=== PATIENT | male | born 2000 | race Caucasian/White ===

== ENCOUNTER 2022-04-22 17:42 | Outpatient (CLI) | payer BC, SELFPAY ==
[2022-04-22 20:38] LABS: Albumin* 4.6 g/dL (3.3-5.0); Chloride* 101 mmol/L (96-114); Sodium* 138 mmol/L (135-149)
[2022-04-22 20:41] LABS: Alanine Aminotransferase* 22 U/L (4-50); Alkaline Phosphatase* 92 U/L (40-150); Aspartate Amino Transferase* 29 U/L (12-35); Bilirubin Total* 0.4 mg/dL (0.1-1.5); Blood Urea Nitrogen* 14 mg/dL (5-24); Carbon Dioxide* 28 mmol/L (20-32); Creatinine* 0.9 mg/dL (0.5-1.5); Estimated Glomerular Filt Rate 125 ml/min; Glucose* 82 mg/dL (60-115); Total Protein* 6.7 g/dL (6.0-8.3)
[2022-04-22 20:42] LABS: Calcium* 9.2 mg/dL (8.4-10.6)
[2022-04-22 20:57] LABS: Free T4 Free Thyroxine* 0.92 ng/dL (0.70-1.85)
[2022-04-22 21:11] LABS: Thyroid Stimulating Hormone* 0.704 uIU/mL (0.270-4.20)
== END 2022-04-22 17:43 | disposition home or self-care (01) ==
PROVIDERS: PCP Family Medicine; Visit Provider Family Medicine
DX: Z00.00 Encounter for general adult medical examination without abnormal findings (principal); R62.7 Adult failure to thrive
CPT/HCPCS: 80053; 84439; 84443

== ENCOUNTER 2022-11-29 14:24 | Emergency (ER) | payer BC, SELFPAY ==
[2022-11-29 14:34] VITALS: BP 132/75; PULSE 111; RESP 20; TEMP 36.5; O2SAT 100; BMI 17.6
[2022-11-29 14:54] VITALS: O2SAT 99
--- NOTE | 2022-11-29 14:54 | CRLHL7_ITS ---
For Patients: As a result of the Century Cures Act, medical imaging exams and procedure reports are released immediately into your electronic medical record. You may view this report before your referring provider. If you have questions, please contact your health care provider. INDICATION: Chest pain TECHNIQUE: Single view chest. FINDINGS: The lungs are clear. The heart, mediastinum and pulmonary vessels are of normal size. There is no evidence of pleural disease. IMPRESSION: Negative chest. Dictated by Autumn Robbins MD @ 11/29/2022 3:40:04 PM (Electronically Signed)
[2022-11-29 15:00] VITALS: BP 105/70; PULSE 90; RESP 16; O2SAT 100
[2022-11-29 15:26] LABS: Basophils Absolute Auto 0.03 K/uL (0.00-0.30); Basophils Percent Auto 0.3 % (0.0-3.0); Eosinophils Absolute Auto 0.14 K/uL (0.00-0.50); Eosinophils Percent Auto 1.3 % (0.0-7.0); Hematocrit 44.8 % (37.0-53.0); Hemoglobin* 15.8 gm/dL (13.5-17.5); Immature Granulocytes Abs Auto 0.08 K/uL (0.00-0.30); Immature Granulocytes Pct Auto 0.7 %; Lymphocytes Absolute Auto 2.25 K/uL (0.90-2.90); Lymphocytes Percent Auto 20.8 % (20-44); Mean Corpuscular HGB Conc 35 gm/dL (32-36); Mean Corpuscular Hemoglobin 31 pg (26-34); Mean Corpuscular Volume 89 fL (80-100); Monocytes Percent Auto 6.9 % (0.0-11.0); Neutrophils Absolute Auto 7.55 K/uL (1.7-7.0); Platelet Count* 227 K/uL (140-440); RDW Coefficient of Variation % 11.8 % (11.5-15.5); Red Blood Count 5.05 m/uL (4.30-5.90)
[2022-11-29 15:27] LABS: Albumin* 4.6 g/dL (3.3-5.0); Chloride* 104 mmol/L (96-114); Sodium* 140 mmol/L (135-149)
[2022-11-29 15:28] LABS: Potassium* 3.5 mmol/L (3.6-5.1)
[2022-11-29 15:30] VITALS: BP 94/65; PULSE 85; RESP 16; O2SAT 98
[2022-11-29 15:30] LABS: Alkaline Phosphatase* 79 U/L (40-150); Aspartate Amino Transferase* 23 U/L (12-35); Bilirubin Direct* 0.1 mg/dL (0.0-0.5); Bilirubin Total* 1.2 mg/dL (0.1-1.5); Carbon Dioxide* 30 mmol/L (20-32); Creatinine* 0.9 mg/dL (0.5-1.5); Est. Creatinine Clearance* 120.78; Estimated Glomerular Filt Rate 125 ml/min; Total Protein* 7.5 g/dL (6.0-8.3)
[2022-11-29 15:31] LABS: Alanine Aminotransferase* 17 U/L (4-50); Blood Urea Nitrogen* 13 mg/dL (5-24); Calcium* 9.9 mg/dL (8.4-10.6); Glucose* 84 mg/dL (60-115); Lipase* 56 U/L (23-300); Slide Review Reflex No
[2022-11-29 15:34] LABS: C Reactive Protein* < 0.5 mg/dL (0.5-1.0)
[2022-11-29 15:38] LABS: D Dimer Quantitative* < 0.27 ug/ml (0.00-0.50)
[2022-11-29] MEDS: KETOROLAC 15 MG/ML inj IVP (15:51)
[2022-11-29 16:00] VITALS: BP 88/62; PULSE 72; O2SAT 98
[2022-11-29 16:13] VITALS: BP 103/69; PULSE 88; O2SAT 98
--- NOTE | 2022-11-29 17:20 | ED.GENADULT ---
HPI - General Adult General Date Seen: 11/29/22 Chief complaint: Chest Pain Stated complaint: Chest pain Time Seen by Provider: 11/29/22 14:43 Source: patient Mode of arrival: ambulatory Limitations: no limitations History of Present Illness HPI narrative: Patient is a 22-year-old male who presents for evaluation of central chest pain which has been present since about 9:00 a.m. this morning. He says that it has not gone away since it started. He was not doing anything special when it started. He describes it as sharp and nonradiating, although he does have some pain when he swallows as well. He says when he stands up tall and looks up toward the ceiling the pain is worse. If he sits and hunches forward it feels better. He tried to take a nap and slept for a while but then the pain woke him up. Then he decided to come in. If he takes a very deep breath he says it hurts but does not otherwise hurt to breathe. He does not feel short of breath. He has not had a fever or cough, no lower extremity swelling or pain. He has a history of a pneumothorax when he was younger, so that was in the back of his mind, but this really does not feel like that felt. He does not have a history of heartburn or reflux. He describes the pain as being moderately severe in intensity. He chews tobacco, he vapes nicotine. Does not describe significant alcohol use. Denies other drug use. Related Data Home Medications Medication Instructions Recorded Confirmed cyclobenzaprine 10 mg tablet 10 mg PO BID PRN 10/11/22 11/29/22 Previous Rx's Medication Instructions Recorded dextroamphetamine-amphetamine 15 15 mg PO QDAY #30 tabs 11/18/22 mg tablet (Adderall) dextroamphetamine-amphetamine 15 15 mg PO QDAY #30 tabs 11/18/22 mg tablet (Adderall) dextroamphetamine-amphetamine 15 15 mg PO QDAY #30 tabs 11/18/22 mg tablet (Adderall) methylphenidate HCl 36 mg 36 mg PO QAM #30 tabs 11/24/22 tablet,extended release 24 hr (Concerta) omeprazole 40 mg capsule,delayed 40 mg PO DAILY 14 days #14 caps 11/29/22 release sucralfate 100 mg/mL oral 10 ml PO TID PRN #200 mL 11/29/22 suspension Allergies Allergy/AdvReac Type Severity Reaction Status Date / Time No Known Drug Allergies Allergy Verified 11/15/22 09:33 Review of Systems Status of ROS: Reports: 10 or more systems reviewed and unremarkable except as noted in History and below [facility] Medical History ADHD, predominantly inattentive type Pneumothorax on left Poor weight gain in adult Seasonal allergies Surgical History (Updated 04/22/22 @ 21:06 by Wesly Herrmann MD) History of chest tube placement Family History (Updated 04/22/22 @ 21:18 by Wesly Herrmann MD) Mother Celiac sprue Brother Celiac sprue Social History (Updated 04/22/22 @ 21:06 by Wesly Herrmann MD) Narrative: Engaged, one son, former smoker, works construction, social EtOH Smoking Status: Former smoker Do you use any of these nicotine containing products: Vaping Products Second hand tobacco smoke exposure: No How often do you have a drink containing alcohol: 2-3 times a week How many standard drinks containing alcohol do you have on a typical day: 1 or 2 How often do you have six or more drinks on one occasion: Less than monthly AUDIT-C Alcohol total score: 4 Non-prescribed substance use: denies use Little interest or pleasure in doing things: not at all Feeling down, depressed, or hopeless: not at all Exam Narrative: Exam Narrative: Vital signs as noted above. In general, an alert, well-appearing patient. Very tall and thin. Comfortable, breathing easily here. Head: Normocephalic, atraumatic. Eyes: Pupils are equal reactive. Extraocular movements are full. Conjunctivae are normal. ENT: Mucous membranes are moist. Throat is normal. Neck: Supple without lymphadenopathy. Heart: Initially tachycardic and regular. No murmur or rub. Pectus excavatum. Lungs: Clear bilaterally. No increased work of breathing, crackles or wheezes. Abdomen: Soft and nontender. No organomegaly. Extremities: Well perfused. No edema. No calf tenderness. Pulses intact. Neurologic: Patient is alert and oriented to person and place. Speech is fluent. Face is symmetric. Moves all extremities equally. Affect: Normal. Skin: Warm and dry. Well perfused. Const: Vital Signs, click to edit/add: Vital Signs - 24 hr 11/29/22 14:34 11/29/22 14:54 11/29/22 15:00 Temperature 97.7 F Pulse Rate [Pulse Oximeter] 111 H 90 Respiratory Rate 20 16 Blood Pressure [Ri ght Upper Arm] 132/75 105/70 Pulse Oximetry 100 99 100 Oxygen Delivery Me thod Room Air 11/29/22 15:30 11/29/22 16:00 11/29/22 16:13 Temperature Pulse Rate [Pulse Oximeter] 85 72 88 Respiratory Rate 16 Blood Pressure [Ri ght Upper Arm] 94/65 88/62 L 103/69 Pulse Oximetry 98 98 98 Oxygen Delivery Me thod Documenting provider has reviewed patient's vital signs: yes Course Course Hospital Course: On arrival, patient had an EKG which by my review showed sinus rhythm, incomplete right bundle-branch block. Nonspecific ST changes, a slightly scooped inverted T-wave in V2 but without other ST or T-wave abnormalities. His point of care troponin was 0, 6 hours after onset of pain. A D-dimer was likewise negative. A portable chest x-ray shows normal mediastinum, no pneumothorax or infiltrate. Final radiology report was of a negative chest x-ray. CBC showed a normal white blood cell count, normal hemoglobin, metabolic panel was normal aside from a potassium of 3.5. LFTs were normal, CRP was less than 0.5 and lipase was normal. Following the negative troponin, I tried giving him some Toradol which provided some improvement in his pain. I did look with the bedside ultrasound and he had no evidence of pericardial effusion. At that time, he was noticing more pain with swallowing, so I elected to give him a GI cocktail. He feels significantly improved after that intervention. With his young age, my suspicion for this being cardiac is rather low, particularly given the negative troponin. I did do a repeat EKG, this shows ongoing sinus rhythm, and is essentially unremarkable. V2 does look slightly different but I would note that the sticker for V2 was replaced because I removed the initial 1 when I was doing his ultrasound. He is quite tall and thin, which raises the Specter of possible connective tissue disorders, but he has a normal D-dimer, normal chest x-ray, and is not hypertensive. He was mildly tachycardic on arrival but this has resolved. The pain with swallowing seems to have been a fairly prominent feature of his chest pain and is resolved with a GI cocktail, so I do wonder about something more along the lines of gastroesophageal reflux/esophageal spasm. There is no evidence of free air or pneumomediastinum on his chest x-ray, as is his CRP. He does not describe a history of recent vomiting. For now, I have recommended that we try him on some Prilosec and have him follow up next week with Dr. Herrmann. If at any time he has acute worsening, develops more severe pain, has hematemesis or black or bloody stools, fever etcetera he should return for re-evaluation. Otherwise, follow up as an outpatient. Vital Signs Vital signs: Initial Vital Signs Temperature 97.7 F 11/29/22 14:34 Temperature Source Temporal Artery Scan 11/29/22 14:34 Pulse Rate 111 H 11/29/22 14:34 Respiratory Rate 20 11/29/22 14:34 Blood Pressure 132/75 11/29/22 14:34 Blood Pressure Mean 94 11/29/22 14:34 Blood Pressure Position Sitting 11/29/22 14:34 Pulse Oximetry 100 11/29/22 14:34 Oxygen Delivery Method 11/29/22 14:34 Vital Signs Temperature 97.7 F 11/29/22 14:34 Pulse Rate 111 H 11/29/22 14:34 Respiratory Rate 20 11/29/22 14:34 Blood Pressure 132/75 11/29/22 14:34 Pulse Oximetry 100 11/29/22 14:34 Oxygen Delivery Method 11/29/22 14:34 Temperature 97.7 F 11/29/22 14:34 Pulse Rate 88 11/29/22 16:13 Respiratory Rate 16 11/29/22 15:30 Blood Pressure 103/69 11/29/22 16:13 Pulse Oximetry 98 11/29/22 16:13 Oxygen Delivery Method 11/29/22 14:34 Medical Decision Making Lab Data Labs: Lab Results 11/29/22 11/29/22 11/29/22 Range/Units 15:04 15:04 15:04 WBC 10.80 (4.50-11.00) K/uL RBC 5.05 (4.30-5.90) m/uL Hgb 15.8 (13.5-17.5) gm/dL Hct 44.8 (37.0-53.0) % MCV 89 (80-100) fL MCH 31 (26-34) pg MCHC 35 (32-36) gm/dL RDW Coeff of Ailyn 11.8 (11.5-15.5) % Plt Count 227 (140-440) K/uL Neut % (Auto) 70.0 (42.0-72.0) % Lymph % (Auto) 20.8 (20-44) % Boone % (Auto) 6.9 (0.0-11.0) % Eos % (Auto) 1.3 (0.0-7.0) % Baso % (Auto) 0.3 (0.0-3.0) % Neut # (Auto) 7.55 H (1.7-7.0) K/uL Lymph # (Auto) 2.25 (0.90-2.90) K/uL Boone # (Auto) 0.70 (0.00-0.90) K/UL Eos # (Auto) 0.14 (0.00-0.50) K/uL Baso # (Auto) 0.03 (0.00-0.30) K/uL D-Dimer Quant (PE/DVT) < 0.27 (0.00-0.50) ug/ml Sodium 140 (135-149) mmol/L Potassium 3.5 L (3.6-5.1) mmol/L Chloride 104 (96-114) mmol/L Carbon Dioxide 30 (20-32) mmol/L BUN 13 (5-24) mg/dL Creatinine 0.9 (0.5-1.5) mg/dL Estimated Creat Clear 120.78 Estimated GFR 125 ml/min Glucose 84 (60-115) mg/dL Calcium 9.9 (8.4-10.6) mg/dL Total Bilirubin 1.2 (0.1-1.5) mg/dL Direct Bilirubin 0.1 (0.0-0.5) mg/dL AST 23 (12-35) U/L ALT 17 (4-50) U/L Alkaline Phosphatase 79 (40-150) U/L C-Reactive Protein < 0.5 L (0.5-1.0) mg/dL Total Protein 7.5 (6.0-8.3) g/dL Albumin 4.6 (3.3-5.0) g/dL Lipase 56 (23-300) U/L POC Troponin I (0.01-0.04) ng/ml 11/29/22 Range/Units 15:04 WBC (4.50-11.00) K/uL RBC (4.30-5.90) m/uL Hgb (13.5-17.5) gm/dL Hct (37.0-53.0) % MCV (80-100) fL MCH (26-34) pg MCHC (32-36) gm/dL RDW Coeff of Ailyn (11.5-15.5) % Plt Count (140-440) K/uL Neut % (Auto) (42.0-72.0) % Lymph % (Auto) (20-44) % Boone % (Auto) (0.0-11.0) % Eos % (Auto) (0.0-7.0) % Baso % (Auto) (0.0-3.0) % Neut # (Auto) (1.7-7.0) K/uL Lymph # (Auto) (0.90-2.90) K/uL Boone # (Auto) (0.00-0.90) K/UL Eos # (Auto) (0.00-0.50) K/uL Baso # (Auto) (0.00-0.30) K/uL D-Dimer Quant (PE/DVT) (0.00-0.50) ug/ml Sodium (135-149) mmol/L Potassium (3.6-5.1) mmol/L Chloride (96-114) mmol/L Carbon Dioxide (20-32) mmol/L BUN (5-24) mg/dL Creatinine (0.5-1.5) mg/dL Estimated Creat Clear Estimated GFR ml/min Glucose (60-115) mg/dL Calcium (8.4-10.6) mg/dL Total Bilirubin (0.1-1.5) mg/dL Direct Bilirubin (0.0-0.5) mg/dL AST (12-35) U/L ALT (4-50) U/L Alkaline Phosphatase (40-150) U/L C-Reactive Protein (0.5-1.0) mg/dL Total Protein (6.0-8.3) g/dL Albumin (3.3-5.0) g/dL Lipase (23-300) U/L POC Troponin I 0.00 L (0.01-0.04) ng/ml Discharge Plan Discharge Clinical Impression: Chest pain Patient Disposition: Home, Self-Care Condition: Improved Instructions: GERD (Gastroesophageal Reflux Disease) (DC) Additional Instructions: Prilosec as prescribed. Carafate as needed. Primary care follow-up next week for re-evaluation. If you have severe uncontrolled pain, fever, bloody emesis, black or bloody stools, or other significant worsening, return for re-evaluation. Prescriptions: New omeprazole 40 mg capsule,delayed release(DR/EC) 40 mg PO DAILY 14 Days Qty: 14 0RF sucralfate 100 mg/mL suspension 10 ml PO TID PRNQty: 200 3RF No Action cyclobenzaprine 10 mg tablet 10 mg PO BID PRN Label Comments: TAKE 1 TABLET 2 TIMES DAILY IF NEEDED FOR MUSCLE SPASM. DON'T DRIVE FOR 8 HOURS AFTER TAKING THIS. dextroamphetamine-amphetamine [Adderall] 15 mg tablet 15 mg PO QDAY Qty: 30 0RF dextroamphetamine-amphetamine [Adderall] 15 mg tablet 15 mg PO QDAY Qty: 30 0RF dextroamphetamine-amphetamine [Adderall] 15 mg tablet 15 mg PO QDAY Qty: 30 0RF methylphenidate HCl [Concerta] 36 mg tablet extended release 24hr 36 mg PO QAM Qty: 30 0RF Follow Up/Referrals: Wesly Herrmann MD [Primary Care Provider] - Stand Alone Forms: [facility] Info Instructions
[2022-11-29] MEDS: GI COCKTAIL (VISC LIDO/ANTACID) 30 ML PO (17:36)
--- NOTE | 2022-11-29 17:45 | ED.NURSE ---
Pt states pain improved after GI cocktail updated.
== END 2022-11-29 18:19 | disposition home or self-care (01) ==
PROVIDERS: Emergency Provider Emergency Medicine; PCP Family Medicine
DX: R07.9 Chest pain, unspecified (principal)
CPT/HCPCS: 36415; 71045; 80048; 80076; 83690; 84484; 85025; 85379; 86140; 93005; 94761; 96374; 99284; 99285; A9270; J1885

== ENCOUNTER 2023-07-14 15:53 | Outpatient (CLI) | payer BC, SELFPAY ==
--- NOTE | 2023-07-14 16:00 | CRLHL7_ITS ---
For Patients: As a result of the Century Cures Act, medical imaging exams and procedure reports are released immediately into your electronic medical record. You may view this report before your referring provider. If you have questions, please contact your health care provider. Indication: Chronic sinusitis. Technique: CT of the sinuses performed without IV contrast Comparison: None relevant available Findings: Frontal sinuses: Clear. Ethmoid sinuses: Mild mucosal thickening Maxillary sinuses: Small right mucous retention cyst/polyp. Otherwise clear. Sphenoid sinuses: Clear. The right ostiomeatal unit appears occluded, partially opacified on the left. The sphenoethmoidal and frontoethmoidal recesses appear patent. Nasal Cavity: Mild rightward nasal septal deviation. No aggressive osseous erosion, mucoperiosteal reaction or air-fluid levels identified. No effacement of the fat planes. Intracranial structures appear grossly intact as visualized. Impression: 1. Mild ethmoid paranasal sinus disease. 2. No evidence of acute sinusitis. 3. Occluded right ostiomeatal unit. Please note that all CT scans at this facility use dose modulation, iterative reconstruction, and/or weight-based dosing when appropriate to reduce radiation dose to as low as reasonably achievable. Dictated by Herson Hill MD @ 07/14/2023 4:44:40 PM (Electronically Signed)
== END 2023-07-14 15:54 | disposition home or self-care (01) ==
PROVIDERS: PCP Family Medicine; Visit Provider Otolaryngology
DX: J32.9 Chronic sinusitis, unspecified (principal)
CPT/HCPCS: 70486

== ENCOUNTER 2023-08-29 16:57 | Outpatient (CLI) | payer BC, SELFPAY | END 2023-08-29 16:58 | disposition home or self-care (01) | LOC: NFLDREF 16:59 | PROVIDERS: PCP Family Medicine; Visit Provider Family Medicine | DX: Z01.818 Encounter for other preprocedural examination (principal) | CPT/HCPCS: 80048 ==

== ENCOUNTER 2023-09-12 09:28 | Day surgery (SDC) | payer BC, SELFPAY ==
[2023-09-12] VITALS (12 sets, daily range): BP systolic 102–130; BP diastolic 66–84; PULSE 65–77; RESP 12–18; TEMP 36.4–36.8; O2SAT 88–100; BMI 17.6
[2023-09-12] MEDS: ETHYL CHLORIDE 1 APPLICATION 1 APPLIC TOPICAL (10:18)
[2023-09-12] MEDS: SODIUM CHLORIDE 0.9 % (FLUSH) 10 ML SYRINGE IVF (10:19)
[2023-09-12] MEDS: LACTATED RINGERS 1000 ML 1,000 ML 100 ML IV (10:19)
[2023-09-12] MEDS: OXYMETAZOLINE 0.05% NASAL SPRAY 2 SPRAY NOSTRIL-B (11:05)
[2023-09-12] MEDS: BUPIVACAINE 0.5 %/EPI 1:200K 30 ML INJECTION (12:28)
[2023-09-12] MEDS: MUPIROCIN 1 GM PACKET 1 APPLIC TOPICAL (12:28)
[2023-09-12] MEDS: COCAINE HCL 4 % 4 ML SOLUTION NOSTRIL-B (12:28)
[2023-09-12] MEDS: AYR SALINE NASAL GEL 1 APPLIC NOSTRIL-B (12:30)
--- NOTE | 2023-09-12 12:30 | W.ANESCHARGE ---
Anesthesia Charges Start Date/Time Anesthesia Start Date: 09/12/23 Anesthesia Start Time: 12:09 Stop Date/Time Anesthesia Stop Date: 09/12/23 Anesthesia Stop Time: 12:50
--- NOTE | 2023-09-12 12:52 | W.ANESCHARGE ---
Anesthesia Charges Start Date/Time Anesthesia Start Date: 09/12/23 Anesthesia Start Time: 12:09 Stop Date/Time Anesthesia Stop Date: 09/12/23 Anesthesia Stop Time: 12:50
[2023-09-12] MEDS: ACETAMINOPHEN 325 MG TABLET PO (13:52)
[2023-09-12] MEDS: OXYCODONE 5 MG TABLET PO (13:52)
--- NOTE | 2023-09-12 13:59 | W.PM.ENTPROC ---
Procedure Note Date of procedure: 09/12/23 Procedure: PREOP DIAGNOSIS NASAL OBSTRUCTION NASAL HEADACHE DEVIATED SEPTUM LEFT INFERIOR TURBINATE HYPERTROPHY Postoperative diagnosis same Procedure nasal septoplasty, submucous partial resection left inferior turbinate Under general endotracheal anesthesia patient was prepped draped usual fashion the nose injected and decongested. A right hemitransfixion incision was made left anterior posterior tunnels were created. A vertical incision was made through the cartilage and a right posterior tunnel created. The posterior deflected portions of septal bone resected a large piece was trimmed and returned to intraseptal space. The anterior septum was moved to midline. The hemitransfixion was closed with 2 4-0 chromic sutures. Left middle turbinate was enlarged was crushed with the [place] forceps. A stab incision was made in the anterior low a the left inferior turbinate a tunnel created with a Guthrie dissector. Conservative anterior submucous resection was performed in the Coblation was used for hemostasis and to cauterize intramurally along the inferior 10%. Silastic stents were secured with 3-0 nylon and Merocel packing was placed in each side the nose. The patient procedure well was taken recovery in satisfactory condition. Blood loss less than 25 mL. Surgeon: Scooter Martinez MD
== END 2023-09-12 14:17 | disposition home or self-care (01) ==
LOC: OR 09:29
PROVIDERS: PCP Family Medicine; Visit Provider Otolaryngology
PROC: (CPT 30520; principal; 2023-09-12 10:45)
DX: J34.2 Deviated nasal septum (principal); J34.3 Hypertrophy of nasal turbinates; R51.9 Headache, unspecified
CPT/HCPCS: 30520; 30140; 160; A9270; J0330; J1100; J2405; J2704; J3010; J3490; J7120

== ENCOUNTER 2024-12-22 19:13 | Emergency (ER) | payer BC, SELFPAY ==
--- OUTSIDE RECORDS SUMMARY | 2024-12-22 19:14 | XMS_ITS | Clinical Summary ---
Author Organization [employer] [facility] Address [facility] [place] [address] Care Team Providers Care Racing Mechanic Name Role Phone Kendell Anglin MD Primary Care Provider [phone]- [phone] Allergies Active Allergy Reactions Criticality Noted Date Comments House Dust Cough,Wheezing 04/29/2014 Medications cyclobenzaprine (FLEXERIL) 10 mg tabletIndication s:Trapezius muscle strain, left, initial encounter Take 1 Tablet (10 mg) by mouth 2 times daily if needed for Muscle Spasm. Don't drive for 8 hours after taking this. 30 Tablet 04/05/2022 Active Active Problems Problem Noted Date Diagnosed Date Exercise-induced asthma 07/19/2013 Seasonal allergies 06/28/2013 Unspecified hyperkinetic syndrome of childhood 0 05/05/2008 Overview (05/05/2008): In process of evaluating attentional concerns Immunizations Immunization Administration Dates Next Due AMB Influenza, IIV3 (Age >=3 years) Preserve Free (Flu Clinic Only) 07/18/2011 AMB Influenza, IIV3 (Age >=3 years)(Flu Clinic Only) 07/21/2009,07/27/2008 AMB Influenza, IIV4 PF (=>6 mos Flulaval,Fluzone Fluarix)(Flu Clinic Only) 07/02/2016,07/04/2014,06/23/2013 DTaP 04/10/2006, 3,2001,07/28,2001 HIB HbOC (HibTITER) 07/02/2003,2001,2000 Hepatitis A (Peds) 04/18/2010,04/21/2009 Hepatitis B (Peds) 07/02/2002,2001, 001 Human Papilloma Virus Vaccine 11/13/2012, 012,04/29/2012 Inactivated Polio Vaccine 04/10/2006,05/2002,2001,05/29 Influenza A (H1N1), Inactivated 08/11/2009 Influenza A (H1N1), Inactiva symone (Age >=3 Years) 09/19/2009 Influenza, IIV3 (Age >=3 years) 07/10/20 12,06/26/2010,09/14/2007,08/13 Influenza, IIV4 06/21/2020, 8,06/06/2017,06/19 MENINGOCOCCAL VACCINE 2 VIAL [id number] (MENVEO) 06/06/2017,07/10/2012 MMR 04/10/2006,03/30/2002 Pneumococcal conj 7-Valent (Prevnar 7) 0 10/14/2002,03/30/2002,2001,05/29 Tdap 04/29/2012 Varicella Vaccine 04/10/2006,03/30/2002 Social History Tobacco Use Types Packs/Day Years Used Date Smoking Tobacco: Never Smokeless Tobacco: Current Chew Tobacco Cessation:Ready to Q uit: No; Counseling Given: Yes Comments:mother quit in Alcohol Use Standard Drinks/Week Comments Yes 1 (1 standard drink = 0.6 oz pur e alcohol) PHQ-2 Answer Date Recorded PHQ-2 TOTAL SCORE 0 04/05/2022 Social Connections Answer Date Recorded Frequency of Communication with Friends and Fami ly Not on file 10/06/2021 Alcohol Use Answer Date Recorded How often do you have a drink containing alcohol ? 2 04/05/2022 How many drinks containing a lcohol do you have on a typical day when you are drinking? 0 04/05/2022 How often do you have five or more drinks on one occasion? 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 Gender Identity Not on file Sexual Orientation Not on file Obstetrics History Last Filed Vital Signs Vital Sign Reading Time Taken Comments Blood Pressure 107/66 04/05/2022 12:08 PM CDT Pulse 73 04/05/2022 12:08 PM CDT Temperature 36.4 C (97.5 F) 06/21/2020 2:56 PM CDT Respiratory Rate - - Oxygen Saturation 98% 04/05/2022 12:08 PM CDT Inhaled Oxygen Concentration - - Weight 64.6 kg (142 lb 8 oz) 04/05/2022 12:08 PM CDT Height 192.8 cm (6' 3.91) 04/05/2022 12:08 PM C DT Body Mass Index 17.39 04/05/2022 12:08 PM CDT Plan of Treatment Health Maintenance Due Date Last Done Comments HIV for age 15-65 2016 Hepatitis C screening for age 18-79 2019 Tetanus booster 04/29/2022 04/29/2012 BMI (ht and wt on same day) for age 18+ 04/05/2023 04/05/2022, 06/21/2020 Depression screening for age 12+ 04/05/2023 04/05/2022, 06/21/2020, 06/15/2018, Additional history exists COVID-19 vaccine series ( season) 2024 07/23/2021, 06/17/2021 Influenza Vaccine (#1) 2024 0, 06/15/2018, 06/06/2017, Additional history exists Pneumococcal series for age 6-49 Aged Out 10/14/2002, 03/30/2002, 2001, Additional history exists No longer eligible based on patient's age to complete this topic Tdap Completed 04/29/2012 HPV series for age 9-26 Completed 11/13/19 13, 07/10/2012, 04/29/2012 Care Teams Racing Mechanic Relationship Specialty Start Date End Date Kendell Anglin MD [address] [place] [address] [facility] - General 12/03/07
[2024-12-22 19:27] VITALS: RESP 18; O2SAT 99
[2024-12-22 19:28] VITALS: BP 135/80; PULSE 95; RESP 20; TEMP 36.8; O2SAT 99; BMI 17.6
[2024-12-22 19:45] VITALS: O2SAT 99
--- NOTE | 2024-12-22 20:06 | CRLHL7_ITS ---
For Patients: As a result of the Century Cures Act, medical imaging exams and procedure reports are released immediately into your electronic medical record. You may view this report before your referring provider. If you have questions, please contact your health care provider. Indication: Neck pain. Technique: Cervical spine 3 views. Comparison: None. Findings: The cervical vertebral bodies are normal in height and alignment. The intervertebral disc spaces are maintained. The posterior elements are unremarkable. No aggressive osseous lesion, acute fracture, or traumatic subluxation. The craniocervical junction is intact. The lung apices are clear. Impression: Unremarkable cervical spine. Dictated by Masood Hernandez MD @ 12/22/2024 9:10:34 PM (Electronically Signed)
--- OUTSIDE RECORDS SUMMARY | 2024-12-22 20:21 | XMS_ITS | Clinical Summary ---
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
--- NOTE | 2024-12-22 20:51 | ED_ITS ---
HPI - General Adult General Chief complaint: Unspecified Complaint, Adult Stated complaint: Upper spinal pressure Time Seen by Provider: 12/22/24 19:39 History of Present Illness HPI narrative: This 24-year-old male comes in reporting pain in his posterior neck. He states that he has been having neck and back problems for the past 6 months. He does not report any injury event or strenuous activity recently. He has been going to a chiropractor for his lower back and his neck and states that he has had manipulations of both at various times. He does not report any pain radiating down either arm. He seems to have normal range of motion of his neck. Related Data Previous Rx's ?Medication ?Instructions ?Recorded dextroamphetamine-amphetamine 20 20 mg PO BID #60 tabs 12/19/24 mg tablet (Adderall) methylprednisolone 4 mg tablets in See Rx Instructions PO .COMPLEX 12/22/24 a dose pack (Medrol (Homero)) #21 ea Allergies Allergy/AdvReac Type Severity Reaction Status Date / Time No Known Drug Allergies Allergy Verified 12/22/24 19:30 Review of Systems Status of ROS: Reports: 10 or more systems reviewed and unremarkable except as noted in History and below Narrative: Constitutional: No fevers, no weight gain or loss. Eyes: No discharge. No vision changes. HENT: No congestion, no sore throat, no ear pain. Cardiovascular: No chest pain, no palpitations. Respiratory: No shortness of breath, no wheezes, no cough. Gastrointestinal: No abdominal pain, no vomiting, no diarrhea. Genitourinary: No dysuria, no hematuria. Musculoskeletal: Normal range of motion. Skin: No rashes, no pruritis. Neurological: No dizziness, weakness, sensory change, speech change. Endo/Heme/Allergies: No bruising or bleeding. No polydipsia. Pysch: no suicidality, no anxiety, no insomnia. All other systems reviewed and are negative. [facility] Medical History (Updated 12/22/24 @ 20:56 by Naman Howard MD) ADHD, predominantly inattentive type ?F90.0 - Attention-deficit hyperactivity disorder, predominantly inattentive type (ICD-10) Seasonal allergies ?J30.2 - Other seasonal allergic rhinitis (ICD-10) Poor weight gain in adult ?R62.7 - Adult failure to thrive (ICD-10) Pneumothorax on left ?J93.9 - Pneumothorax, unspecified (ICD-10) Surgical History (Updated 02/27/24 @ 23:52 by Wesly Herrmann MD) History of nasal septoplasty ?Z98.890 - Other specified postprocedural states (ICD-10) History of chest tube placement ?Z98.890 - Other specified postprocedural states (ICD-10) Family History (Updated 04/22/22 @ 21:18 by Wesly Herrmann MD) Mother Celiac sprue Brother Celiac sprue Social History (Updated 09/22/24 @ 09:56 by Wesly Herrmann MD) Narrative: Engaged, two sons, former smoker, works construction, social EtOH What is your current living situation?: I presently have a place to live Problems where you live: no known problems In the past 12 months, utilities in danger of being shut off: no In past 12 months, lack of transportation kept you from medical appts, meetings, work, or getting things needed for daily living: no In the past 12 mos, have been you worried that your food would run out before you had money to buy more?: never true In the past 12 mos, the food you bought just didn't last and you didn't have money to buy more?: never true Smoking Status: Former smoker Do you use any of these nicotine containing products: Vaping Products Second hand tobacco smoke exposure: No How often do you have a drink containing alcohol: 4 or more times a week How many standard drinks containing alcohol do you have on a typical day: 3 or 4 How often do you have six or more drinks on one occasion: Less than monthly AUDIT-C Alcohol total score: 6 Non-prescribed substance use: denies use Caffeine: Yes How often does anyone, including family, friends and others, physically hurt you : never How often does anyone, including family, friends and others, insult or talk down to you: never How often does anyone, including family, friends and others, threaten you with harm: never How often does anyone, including family, friends and others, scream or curse at you: never Exam Narrative: Exam Narrative: Constitutional: Well-developed, well-nourished, no acute distress. HEENT: Normocephalic, atraumatic. Neck: Normal range of motion. Supple. No pain when palpating along the midline of the spine from his neck on down to the lumbar region. Heart: Regular. No murmurs. Normal rate. Intact distal pulses. Lungs: Clear to auscultation. No chest discomfort. No wheezes, rhonchi, or rales. Abdomen: Normal bowel sounds. Nontender. No rebound tenderness. Genitalia: Deferred. Back: No midline tenderness. Normal range of motion. Extremities: Normal range of motion. No injury. Skin: Intact. No rash. Warm. No erythema or pallor. Neurologic: No altered sensation. No weakness. Alert and oriented. Psychiatric: No suicidality. No anxiety or depression. No insomnia. Nursing notes and vitals signs are reviewed. Const: Vital Signs, click to edit/add: Vital Signs - 24 hr 12/22/24 19:28 12/22/24 21:12 Temperature 98.3 F 98.3 F Pulse Rate [Right Pulse Oximeter] 95 75 Respiratory Rate 20 20 Blood Pressure [Ri ght Upper Arm] 135/80 142/75 H Pulse Oximetry 99 99 Oxygen Delivery Me thod Room Air Room Air Course Vital Signs Vital signs: Initial Vital Signs Temperature 98.3 F 12/22/24 19:28 Temperature Source Temporal Artery Scan 12/22/24 19:28 Pulse Rate 95 12/22/24 19:28 Respiratory Rate 20 12/22/24 19:28 Blood Pressure 135/80 12/22/24 19:28 Blood Pressure Mean 98 12/22/24 19:28 Blood Pressure Position Sitting 12/22/24 19:28 Pulse Oximetry 99 12/22/24 19:28 Oxygen Delivery Method Room Air 12/22/24 19:28 Vital Signs Temperature 98.3 F 12/22/24 19:28 Pulse Rate 95 12/22/24 19:28 Respiratory Rate 20 12/22/24 19:28 Blood Pressure 135/80 12/22/24 19:28 Pulse Oximetry 99 12/22/24 19:28 Oxygen Delivery Method Room Air 12/22/24 19:28 Temperature 98.3 F 12/22/24 21:12 Pulse Rate 75 12/22/24 21:12 Respiratory Rate 20 12/22/24 21:12 Blood Pressure 142/75 H 12/22/24 21:12 Pulse Oximetry 99 12/22/24 21:12 Oxygen Delivery Method Room Air 12/22/24 21:12 Medical Decision Making MDM Narrative Medical decision making narrative: This patient comes in with nonspecific complaints of neck and upper back pain. He does not have any mechanism of injury but I did obtain a x-ray nonetheless. By my review shows no sign of malalignment or fracture. The patient did receive injection of mixture of lidocaine with Solu-Medrol. 1% lidocaine and 125 mg of Solu-Medrol was mixed together in a total of 6 mL which was injected 3 mL on either side of the nuchal ligament overlying the occipital nerve. The patient tolerated this procedure well. He is okay to be discharged home. I did provide a prescription for Medrol Dosepak. I recommended follow-up with our spine clinic for ongoing management and treatment. Imaging Data xr Cervical Spine: Radiologist's impression: Unremarkable cervical spine. Discharge Plan Discharge Clinical Impression: Neck pain, bilateral posterior Patient Disposition: Home, Self-Care Condition: Stable Additional Instructions: Take medication as prescribed. Use [id number] medicines also as needed and directed. Increase activity as tolerated. Follow up with primary physician or consider an appointment with our spine clinic. Call [phone] for appointment. Return if worsening. Prescriptions: New methylprednisolone [Medrol (Homero)] 4 mg tablets,dose pack See Rx Instructions .ROUTE .COMPLEX Qty: 21 0RF Rx Instructions: orally per package directions No Action dextroamphetamine-amphetamine [Adderall] 20 mg tablet 20 mg PO BID Qty: 60 0RF Follow Up/Referrals: Wesly Herrmann MD [Primary Care Provider] - Stand Alone Forms: [employer] Info Instructions
[2024-12-22 21:12] VITALS: BP 142/75; PULSE 75; RESP 20; TEMP 36.8; O2SAT 99
[2024-12-22 21:25] VITALS: BP 142/75; PULSE 75; RESP 20; TEMP 36.8
== END 2024-12-22 21:26 | disposition home or self-care (01) ==
PROVIDERS: Emergency Provider Emergency Medicine Emergency Medical Services; PCP Family Medicine
DX: M54.2 Cervicalgia (principal)
CPT/HCPCS: 72040; 94761; 96372; 99283; 99284

== ENCOUNTER 2025-01-04 10:15 | Outpatient (RCR) | payer BC, SELFPAY | END 2025-03-07 12:44 | disposition home or self-care (01) | PROVIDERS: PCP Family Medicine; Visit Provider Family Medicine | DX: M54.50 Low back pain, unspecified (principal); G89.29 Other chronic pain; M54.2 Cervicalgia; M54.6 Pain in thoracic spine; Z51.89 Encounter for other specified aftercare | CPT/HCPCS: 97110; 97162 ==

== ENCOUNTER 2025-01-21 01:09 | Emergency (ER) | payer BC, SELFPAY ==
--- OUTSIDE RECORDS SUMMARY | 2025-01-21 01:11 | XMS_ITS | Clinical Summary ---
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 Gender Identity Not on file Sexual Orientation [...] ( season) 2024 07/23/2021, 06/17/2021 Influenza Vaccine (Season Ended) 2025 06/21/2020, 06/15/2018, 06/06/2017, Additional history exists Pneumococcal series for age 6-49 Aged Out 10/14/2002, 03/30/2002, 2001, Additional history exists No longer eligible based on patient's age to complete this topic Tdap Completed 04/29/2012 HPV series for age 9-26 Completed 11/13/19 13, 07/10/2012, 04/29/2012 Care Teams Needle Bar Molder Relationship Specialty Start Date End Date Kendell Anglin MD [address] [place] [address] [address] [facility] - General 12/03/07
[2025-01-21 01:31] VITALS: BP 124/86; PULSE 108; RESP 18; TEMP 36.7; O2SAT 98; BMI 17.0
--- NOTE | 2025-01-21 02:07 | ED.GENADULT ---
HPI - General Adult General Chief complaint: Altered Mental Status Stated complaint: Mental Health Time Seen by Provider: 01/21/25 01:32 History of Present Illness HPI narrative: Patient is a 24-year-old gentleman brought in by the placed department tonight with increasing paranoia. Patient is gainfully employed and has no history of schizophrenia or similar. He has been increasingly paranoid at home and at work in both his and employer have been concerned that the patient is developed delusions of persecution. Patient states that he is worried that people are lying to him and this is placing him a danger. He has no history of suicidal ideation no chest pain no shortness a breath orthopnea no PND. He has not been drinking alcohol but does use marijuana occasionally. He has had no recent injuries and is conversational tonight and non combative. Related Data Previous Rx's ?Medication ?Instructions ?Recorded dextroamphetamine-amphetamine 20 20 mg PO BID #60 tabs 12/19/24 mg tablet (Adderall) methylprednisolone 4 mg tablets in See Rx Instructions PO .COMPLEX 12/22/24 a dose pack (Medrol (Homero)) #21 ea naproxen 500 mg tablet 500 mg PO BID #60 tabs 12/27/24 Allergies Allergy/AdvReac Type Severity Reaction Status Date / Time No Known Drug Allergies Allergy Verified 12/27/24 07:51 Review of Systems Status of ROS: Reports: 10 or more systems reviewed and unremarkable except as noted in History and below [facility] Medical History ADHD, predominantly inattentive type ?F90.0 - Attention-deficit hyperactivity disorder, predominantly inattentive type (ICD-10) Seasonal allergies ?J30.2 - Other seasonal allergic rhinitis (ICD-10) Poor weight gain in adult ?R62.7 - Adult failure to thrive (ICD-10) Pneumothorax on left ?J93.9 - Pneumothorax, unspecified (ICD-10) Surgical History History of nasal septoplasty ?Z98.890 - Other specified postprocedural states (ICD-10) History of chest tube placement ?Z98.890 - Other specified postprocedural states (ICD-10) Family History Mother Celiac sprue Brother Celiac sprue Social History Narrative: Engaged, two sons, former smoker, works construction, social EtOH What is your current living situation?: I presently have a place to live Problems where you live: no known problems In the past 12 months, utilities in danger of being shut off: no In past 12 months, lack of transportation kept you from medical appts, meetings, work, or getting things needed for daily living: no In the past 12 mos, have been you worried that your food would run out before you had money to buy more?: never true In the past 12 mos, the food you bought just didn't last and you didn't have money to buy more?: never true Smoking Status: Former smoker Do you use any of these nicotine containing products: Vaping Products Second hand tobacco smoke exposure: No How often do you have a drink containing alcohol: monthly or less How many standard drinks containing alcohol do you have on a typical day: 1 or 2 How often do you have six or more drinks on one occasion: Monthly AUDIT-C Alcohol total score: 3 Non-prescribed substance use: marijuana (any form) Caffeine: Yes How often does anyone, including family, friends and others, physically hurt you: never How often does anyone, including family, friends and others, insult or talk down to you: never How often does anyone, including family, friends and others, threaten you with harm: never How often does anyone, including family, friends and others, scream or curse at you: never Exam Narrative: Exam Narrative: EXAM GENERAL: Patient appears comfortable and well. EYES: No scleral icterus. ENT: Tympanic membranes and oropharynx normal. THYROID: no thyroid nodules or thyromegaly. LYMPH: No supraclavicular or cervical lymphadenopathy. SKIN: Visible skin seen during exam normal or with benign process only. EXT: No dependent lower extremity pedal edema. HEART: Regular rate and rhythm with no murmurs, rubs, or gallops. LUNGS: Clear to auscultation bilaterally with no crackles or wheezes. ABD: Soft, non tender, non distended. PSYCH: Good eye contact, speech is not pressured. Const: Vital Signs, click to edit/add: Vital Signs - 24 hr 01/21/25 01:31 Temperature 98.1 F Pulse Rate [Pulse Oximeter] 108 H Respiratory Rate 18 Blood Pressure [Ri ght Upper Arm] 124/86 Pulse Oximetry 98 Oxygen Delivery Me thod Room Air Course Course ED Course: Standard psychiatric labs collected. Mental health consult requested. Vital Signs Vital signs: Initial Vital Signs Temperature 98.1 F 01/21/25 01:31 Temperature Source Temporal Artery Scan 01/21/25 01:31 Pulse Rate 108 H 01/21/25 01:31 Respiratory Rate 18 01/21/25 01:31 Blood Pressure 124/86 01/21/25 01:31 Blood Pressure Mean 98 01/21/25 01:31 Blood Pressure Position Sitting 01/21/25 01:31 Pulse Oximetry 98 01/21/25 01:31 Oxygen Delivery Method Room Air 01/21/25 01:31 Vital Signs Temperature 98.1 F 01/21/25 01:31 Pulse Rate 108 H 01/21/25 01:31 Respiratory Rate 18 01/21/25 01:31 Blood Pressure 124/86 01/21/25 01:31 Pulse Oximetry 98 01/21/25 01:31 Oxygen Delivery Method Room Air 01/21/25 01:31 Temperature 98.1 F 01/21/25 01:31 Pulse Rate 108 H 01/21/25 01:31 Respiratory Rate 18 01/21/25 01:31 Blood Pressure 124/86 01/21/25 01:31 Pulse Oximetry 98 01/21/25 01:31 Oxygen Delivery Method Room Air 01/21/25 01:31 Medical Decision Making [facility] Narrative Medical decision making narrative: Patient was is a seen and assessed. He refuses blood draw. He does test positive for amphetamines consistent with his Adderall as well as marijuana. We have removed the guns from his house. His dad will come and pick him up. He contracts for safety and I did have him visit with psych. There and agreement the patient is not a risk to himself or anyone else tonight but does need services. Will try to make some arrangements for mental health services as an outpatient. Patient will be discharged to care of his father. Lab Data Labs: Lab Results 01/21/25 Range/Units Unknown Urine Opiates Screen Negative (Negative) Ur Oxycodone Screen Negative (Negative) Urine Methadone Screen Negative (Negative) Ur Barbiturates Screen Negative (Negative) U Tricyclic Antidepress Negative (Negative) Ur Phencyclidine Scrn Negative (Negative) Ur Amphetamines Screen POSITIVE A (Negative) U Methamphetamines Scrn Negative (Negative) U Benzodiazepines Scrn Negative (Negative) Urine Cocaine Screen Negative (Negative) U Marijuana (THC) Screen POSITIVE A (Negative) Ur Drug Screen Comment See Note Discharge Plan Discharge Clinical Impression: Paranoia Patient Disposition: Home w/ Parent or Adult Condition: Stable Additional Instructions: No drinking or using any illicit drugs. Make outpatient appointment to see a psychiatrist/primary care physician. Return if symptoms worsen. Activity Level: No Restrictions Discharge Diet: Regular Prescriptions: No Action naproxen 500 mg tablet 500 mg PO BID Qty: 60 2RF methylprednisolone [Medrol (Homero)] 4 mg tablets,dose pack See Rx Instructions .ROUTE .COMPLEX Qty: 21 0RF Rx Instructions: orally per package directions dextroamphetamine-amphetamine [Adderall] 20 mg tablet 20 mg PO BID Qty: 60 0RF Follow Up/Referrals: Wesly Herrmann MD [Primary Care Provider] - Stand Alone Forms: [employer] Info Instructions
--- OUTSIDE RECORDS SUMMARY | 2025-01-21 02:10 | XMS_ITS | Clinical Summary ---
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
[2025-01-21 02:29] LABS: Amphetamine Screen Urine POSITIVE (Negative); Barbiturate Screen Urine Negative (Negative); Benzodiazepines Screen Urine Negative (Negative); Cannabinoid Screen Urine POSITIVE (Negative); Cocaine Screen Urine Negative (Negative); Methadone Screen Urine Negative (Negative); Methamphetamines Screen Urine Negative (Negative); Opiate Screen Urine Negative (Negative); Oxycodone Screen Urine Negative (Negative); Phencyclidine Screen Urine Negative (Negative); Tricyclic Antidepressant Urine Negative (Negative)
[2025-01-21 03:30] VITALS: BP 138/88; PULSE 93; RESP 16; TEMP 36.9; O2SAT 96
== END 2025-01-21 03:46 | disposition home or self-care (01) ==
PROVIDERS: Emergency Provider Internal Medicine; PCP Family Medicine
DX: F22 Delusional disorders (principal); F12.90 Cannabis use, unspecified, uncomplicated
CPT/HCPCS: 80053; 80143; 80179; 80306; 82077; 85025; 99283; Q3014